=== PATIENT | male | born 1950 | race Caucasian/White ===

== ENCOUNTER 2017-08-05 07:27 | Day surgery (SDC) | payer OTHER ==
[2017-08-05] MEDS ORDERED: PROPOFOL 20 ML (08:46)
[2017-08-05] MEDS ORDERED: LIDOCAINE 2% (SDV) 5 ML INJ (08:46)
[2017-08-05] MEDS ORDERED: MIDAZOLAM 1 MG/ML 2 ML INJ (08:46)
== END 2017-08-05 12:20 | disposition home or self-care (01) ==
LOC: GIL 07:27
DX: D12.0 Benign neoplasm of cecum (principal); K29.60 Other gastritis without bleeding; I10 Essential (primary) hypertension
CPT/HCPCS: 43239; 88305; 88312

== ENCOUNTER 2018-01-08 18:46 | Emergency (ER) | payer OTHER ==
[2018-01-08] MEDS: BENOXINATE/FLUORESCEIN DROPS RIGHT EYE (19:30)
[2018-01-08] MEDS: FLUORESCEIN STRIP RIGHT EYE (19:55)
[2018-01-08] MEDS: TETRACAINE 0.5% 4 ML OPH RIGHT EYE (19:55)
== END 2018-01-08 21:41 | disposition home or self-care (01) ==
LOC: FTE 21:41
DX: H43.391 Other vitreous opacities, right eye (principal); H57.8 Other specified disorders of eye and adnexa
CPT/HCPCS: 76536; 99284-25